=== PATIENT | female | born 1960 | race Caucasian/White ===

== ENCOUNTER → 2017-03-22 | Outpatient (CLI) | payer MEDICARE, OTHER ==
[~2017-03-22] MED LIST: ALPRAZOLAM PO; ALPRAZOLAM XR2 MG PO; AMITRIPTYLINE PO; BACLOFEN10 MG PO; BACLOFEN20 M1 PO; BACTRIM DS TABL1 TA1 PO; CLARITIN10 M3 PO; COLACE PO; DICLOFENAC PO; DICYCLOMINE HCL10 MG PO; DICYCLOMINE HCL20 MG PO; DULCOLAX10 MG/SUPP; FLEXERIL; KEFLEX500 MG PO; LEVOTHYROXINE25 MCG PO; METOPROLOL PO; MIRALAX17 GM; OXYCODON HCL-1 UDTAB PO; OXYCODONE-ACET1 EAC1 PO; OXYCONTIN PO; OXYCONTIN40 MG PO; PRAVASTATIN SOD40 MG PO; PRINIVIL5 MG PO; PROTONIX PO; RANITIDINE PO; REGLAN PO; REGLAN10 MG PO; TOPROL XL PO; VITAMIN D50000 UNIT PO; VOLTAREN75 MG PO; XANAX2 MG PO; ZOFRAN ODT4 MG PO; ZOFRAN PO; ZOLOFT PO; ZOLOFT100 MG PO; ZYRTEC10 M2 PO
--- NOTE | ~2017-03-22 | CR132 ---
[facility] A Service of [facility] & [facility] RADIOLOGY TEXT RESULTS PATIENT: COLLEEN ENGLAND LOCATION: [facility] : 60 UNIT #: [id number] AGE: [address]: Yuriy Santos MD SEX: F ORDER DR: [id number] [place] [id number] O MR#: [id number] Acc #: [id number] NAME: COLLEEN ENGLAND : 1960 SEX: F STUDY DATE/TIME: 03/22/2017 13:26 UNIT: [facility] ROOM: STUDY DESCRIPTION: CR Forearm 2 View Lt Attending Physician: Yuriy Santos M.D. Referring Physician: Yuriy Santos M.D. Ordering Physician: Yuriy Santos M.D. Primary Care Physician: Debbi Portillo M.D. MEDICAL IMAGING REPORT This report is preliminary unless electronic signature is present. EXAM Left forearm 03/22/2017 [facility] HISTORY 56-year-old female left arm pain, swelling. Patient fell down injuring arm on Sunday of this week. FINDINGS 2 views of the forearm demonstrate intact radius and ulna with no identified fracture. There is soft tissue swelling noted. I see no soft tissue foreign body. IMPRESSION Negative for fracture. Soft tissue swelling only. Dictated by... Jesus Mueller M.D. THIS IS AN ELECTRONICALLY VERIFIED REPORT Jesus Mueller M.D. at 03/23/2017 8:08 AM HILLARY/[place] TD: 03/22/2017 15:42 JOB #: [id number] MEDICAL IMAGING REPORT Page 1 of 1
== END | disposition home or self-care (01) ==
LOC: SRAD 13:16
DX: M25.422 Effusion, left elbow (principal); M79.89 Other specified soft tissue disorders; M25.522 Pain in left elbow; M79.632 Pain in left forearm
CPT/HCPCS: 73090